=== PATIENT | male | born 1995 | race Caucasian/White ===

== ENCOUNTER 2023-11-03 11:20 | Outpatient (CLI) | payer OTHER, SELFPAY ==
[2023-11-03 19:21] LABS: Creatinine Urine 143.7 mg/dL
[2023-11-03 19:25] LABS: MALB Creatinine Ratio 21.7 mg/g (0-30); Microalbumin Urine Random 31.2 mg/L (0-16.7)
[2023-11-03 19:32] LABS: Alanine Aminotransferase 21 U/L (6-50); Albumin Level 4.7 g/dL (3.5-5.1); Alkaline Phosphatase 82 U/L (38-126); Anion Gap 10 mmol/L (8-16); Aspartate Amino Transferase 56 U/L (17-59); Bilirubin,Total 1.1 mg/dL (0.2-1.3); Blood Urea Nitrogen 17 mg/dL (9-20); Calcium 9.8 mg/dL (8.4-10.2); Carbon Dioxide 24 mmol/L (22-30); Chloride 101 mmol/L (98-107); Cholesterol 218 mg/dL (0-200); Estimated Glomerular Filt Rate > 60; Glucose 230 mg/dL (65-110); HDL Direct 59 mg/dL; Potassium 4.4 mmol/L (3.4-5.0); Sodium 135 mmol/L (137-145); Triglycerides 98 mg/dL (<150)
[2023-11-03 19:44] LABS: LDL Cholesterol Direct 121 mg/dL
[2023-11-03 19:56] LABS: Free T4 Free Thyroxine 1.19 ng/mL (0.78-2.19); Vitamin D 25 Hydroxy 32.2 ng/mL
== END 2023-11-03 11:21 | disposition home or self-care (01) ==
LOC: ANHWCLAB 11:24
PROVIDERS: Visit Provider Nurse Practitioner Family
DX: E55.9 Vitamin D deficiency, unspecified (principal); E11.9 Type 2 diabetes mellitus without complications
CPT/HCPCS: 36415; 80053; 80061; 82043; 82306; 82607; 84439; 84443